=== PATIENT | male | born 1940 | race Caucasian/White ===

== ENCOUNTER 2022-11-25 00:40 | Emergency (ER) | payer OTHER, MEDICARE ==
[2022-11-25] MEDS ORDERED: Acetaminophen/HYDROcodone 325-10 MG Tab PO ONE (01:42)
[2022-11-25] MEDS ORDERED: Take Home: Acetaminophen/HYDROcodone 325-10 MG, 5 Tab Pack PO ONE (02:45)
== END 2022-11-25 02:50 | disposition home or self-care (01) ==
LOC: VM.ED 00:40
DX: S16.1XXA Strain of muscle, fascia and tendon at neck level, initial encounter (principal); S70.12XA Contusion of left thigh, initial encounter; I10 Essential (primary) hypertension; Z95.0 Presence of cardiac pacemaker; Z88.8 Allergy status to other drugs, medicaments and biological substances; X50.1XXA Overexertion from prolonged static or awkward postures, initial encounter
CPT/HCPCS: 72125; 72170; 99284; A9270-GY